=== PATIENT | female | born 1965 | race Two or more races ===

== ENCOUNTER 2017-04-13 12:05 | Emergency (ER) | payer MEDICAID, OTHER ==
[~2017-04-13] VITALS: Ht 160 cm; Wt 62.6 kg
--- NOTE | 2017-04-13 12:20 | NUR ---
PATIENT TO ED DT LOWER ABDOMINAL PAIN, 5/10, SHARP, NON RADIATING SINCE THURSDAY. PATIENT ALSO REPORTED NAUSEA, DENIES VOMITTING, SKIN IS WARM TO TOUCH AND NON DIAPHORETIC. AFEBRILE. VSS. PT ON CHEMO DT OVARIAN CANCER. LAST CHEMO WAS THURSDAY.
[2017-04-13] MEDS ORDERED: IV NS 0.9% 1,000 ML BAG IV ONE (12:30)
[2017-04-13 12:44] LABS: BASOPHILS % (AUTO) 0.5 % (0.0-2.0); EOSINOPHILS % (AUTO) 0.3 % (0.0-6.0); HEMATOCRIT 46 % (33-45); HEMOGLOBIN 15.1 g/dL (11.5-14.8); LYMPHOCYTES # (AUTO) 2.5 /CMM (0.8-4.8); LYMPHOCYTES % (AUTO) 32.2 % (20.0-44.0); MEAN CORPUSCULAR HEMOGLOBIN 27 PG (26.0-33.0); MEAN CORPUSCULAR HGB CONC 33 g/dl (31.0-36.0); MEAN CORPUSCULAR VOLUME 84 fL (82-100); MONOCYTES # (AUTO) 0.9 /CMM (0.1-1.30); MONOCYTES % (AUTO) 11.8 % (2.0-12.0); NEUTROPHILS # (AUTO) 4.3 /CMM (1.8-8.9); NEUTROPHILS % (AUTO) 55.2 % (43.0-81.0); PLATELET COUNT (AUTO) 472 /CMM (150-450); RED BLOOD CELL COUNT(AUTO) 5.52 MIL/uL (4.0-5.2); WHITE BLOOD COUNT (AUTO) 7.7 K/uL (4.3-11.0)
[2017-04-13 12:53] LABS: CALCIUM, SERUM 9.7 mg/dL (8.5-10.1); CARBON DIOXIDE 27 mmol/L (21-32); CHLORIDE 92 mmol/L (98-107); CREATININE 0.8 mg/dL (0.6-1.3); GLUCOSE 184 mg/dL (74-106); POTASSIUM 3.4 mmol/L (3.5-5.1); SODIUM SERUM 130 mmol/L (136-145); UREA NITROGEN, BLOOD 12 mg/dL (7-18)
[2017-04-13 12:54] LABS: INR 0.93 (0.87-1.13); PROTHROMBIN TIME 9.7 SECS (9.5-12.7)
[2017-04-13 12:58] LABS: ALANINE AMINOTRANSFERASE 54 U/L (12-78); ALBUMIN 3.3 g/dL (3.4-5.0); ALKALINE PHOSPHATASE 133 U/L (46-116); ASPARTATE AMINOTRANSFERASE 31 U/L (15-37); BILIRUBIN,DIRECT 0.1 mg/dL (0.0-0.2); BILIRUBIN,TOTAL 0.3 mg/dL (0.2-1.0); TOTAL PROTEIN, SERUM 8.1 g/dL (6.4-8.2)
[2017-04-13 13:00] LABS: TROPONIN I < 0.017 ng/mL (0.00-0.056)
[2017-04-13] MEDS ORDERED: CT SWABBABLE VALVE TRANS SET 1 EA INFUS.SET MC ONE (13:08)
[2017-04-13] MEDS ORDERED: IOHEXOL-300 100 ML VIAL IV ONE (13:08)
[2017-04-13] MEDS ORDERED: IV NS 0.9% 250 ML IV ONE (13:08)
[2017-04-13 13:09] LABS: APPEARANCE,URINE Clear (CLEAR); BILIRUBIN,URINE Negative (NEGATIVE); BLOOD, URINE Trace-lysed Ery/uL (NEGATIVE); COLOR,URINE Yellow (YELLOW); KETONES,URINE Negative (NEGATIVE); LEUKOCYTE ESTERASE ,URINE Negative (NEGATIVE); NITRITE, URINE Negative (NEGATIVE); PROTEIN,URINE 100 mg/dl (NEGATIVE); UGLUCOSE 100 MG/DL mg/dL (NEGATIVE); UROBILINOGEN,URINE 0.2 EU/dL (0.2)
[2017-04-13 13:13] LABS: BACTERIA,URINE None seen /HPF (None Seen); SQUAMOUS EPITHELIAL CELL,UR Few /HPF (None Seen); WBC,URINE 0-2 /HPF (0-3)
--- NOTE | 2017-04-13 13:15 | NUR ---
PATIENT WAS TAKEN TO CT
[2017-04-13] MEDS ORDERED: VANCOMYCIN 1 GM in IV D5W 250 ML IV ONE (13:30)
[2017-04-13] MEDS ORDERED: PIPERACILLIN /TAZOBACTAM 3.375 G in IV D5W 50 ML IV ONE (13:30)
[2017-04-13] MEDS: POTASSIUM CL. PREMIX PERIPHER. 50 ML IV SCH ×2 (14:00→14:44)
[2017-04-13] MEDS ORDERED: POTASSIUM CL. PREMIX PERIPHER. 100 ML ONE (14:12)
--- NOTE | 2017-04-13 14:29 | NUR ---
CALLED DR SANCHEZ,LEFT VOICEMAIL.
[2017-04-13] MEDS ORDERED: DEXA4TAB PO (14:34)
[2017-04-13] MEDS ORDERED: ONDA4TAB5 PO (14:34)
--- NOTE | 2017-04-13 15:25 | NUR ---
DR SANCHEZ CALLED BACK, EXPECTING TRANSFER INFORMATION TO [facility].
--- NOTE | 2017-04-13 16:53 | NUR ---
LALIT FROM [facility] CALLED, BED AT [place] IS STILL PENDING. ONCE SHE GETS A BED SHE WILL GIVE US A CALL. [facility] IS ON WILL CALL, TRIP #[id number]
--- NOTE | 2017-04-13 17:38 | NUR ---
Patient is resting comfortably in bed with eyes closed. Easily aroused. VSS
--- NOTE | 2017-04-13 18:22 | NUR ---
PATIENT IS GOING TO [facility]- [phone] NUMBER [id number] DR[address] GUIDRY TO CALL DR. LEPE- [phone] [facility] [phone]
--- NOTE | 2017-04-13 18:27 | NUR ---
CALLED DR LEPE LEFT VOICEMAIL.
--- NOTE | 2017-04-13 18:29 | NUR ---
REPORT GIVEN TO TING SELF FOR CONTINUITY OF CARE/
--- NOTE | 2017-04-13 19:06 | NUR ---
RECEIVED REPORT FROM TING TITUS FOR [facility]O.
--- NOTE | 2017-04-13 19:50 | NUR ---
[facility] FROM [facility] CALLED BACK, PATIENT WILL BE TRANSPORTED TO [facility]. ROOM [address] [facility] NUMBER TO CALL REPORT . EXPECTING A CALL BACK FROM [facility] WITH TRANSPORT INFORMATION.
[2017-04-13 21:04] VITALS: BP 136/98
--- NOTE | 2017-04-13 21:18 | NUR ---
[facility] WITH ALL PERSONAL BELONGINGS. PT TO BE TRANSFERRED TO [facility] VIA [facility]. PT AWARE OF TRANSFER
--- NOTE | 2017-04-13 21:23 | NUR ---
REPORT GIVEN TO JACQUI CORADO FOR CLEO
== END 2017-04-13 22:40 | disposition short-term general hospital (02) ==
LOC: ER 12:07 → TELE 15:39 → UNDOADMIN 15:39 → ER 22:40
DX: A41.9 Sepsis, unspecified organism (principal); R65.20 Severe sepsis without septic shock; J18.9 Pneumonia, unspecified organism; E87.6 Hypokalemia; R18.0 Malignant ascites; J90 Pleural effusion, not elsewhere classified; Z91.018 Allergy to other foods; Z85.43 Personal history of malignant neoplasm of ovary; Z90.710 Acquired absence of both cervix and uterus
CPT/HCPCS: 36415; 71010; 74160; 80048; 80076; 81001; 83605 ×2; 84484; 85025; 85730; 87040 ×2; 87081; 87086; 93005; 96361; 96365 ×2; 96366; 96368; 99291; A4606; J2543; J3370; J3480; J7030 ×2; J7050; J7060 ×2; Q9967; Z7610; 81000-TC

== ENCOUNTER 2018-10-19 11:44 | Emergency (ER) | payer SELFPAY ==
[~2018-10-19] VITALS: Ht 149.9 cm; Wt 72.6 kg
[~2018-10-19 11:44] MED LIST: DEXA4TAB PO; ONDA4TAB5 PO
--- NOTE | 2018-10-19 11:50 | NUR ---
PT CHERRY RA 87 From [facility] "was getting chemo - allergic reaction felt SOB was given Benadryl/prednisone in facility and 4Mg Zofran en route" PT IS AAOX3 CITIZ[place] SPEAKING ONLY, NOT IN RESPIRATORY DISTRESS, HOOKED TO MONITOR, V/S STABLE, KEPT RESTED AND COMFORTABLE, WILL CONTINUE TO MONITOR.
--- NOTE | 2018-10-19 11:50 | NUR ---
IV LINE ESTABLISHED, LABS DRAWNED AND SENT TO LAB.
--- NOTE | 2018-10-19 11:55 | NUR ---
AMEENA LAW AT BEDSIDE FOR EVAL.
[2018-10-19] MEDS ORDERED: IV NS 0.9% 1,000 ML BAG IV ONE (12:00)
--- NOTE | 2018-10-19 13:23 | NUR ---
IV removed. Catheter intact and site benign. Pressure and 4x4 applied to site. No bleeding noted. Patient discharged to home in stable condition. Written and verbal after care instructions given. Patient verbalizes understanding of instruction.
[2018-10-19 13:24] VITALS: BP 124/75
== END 2018-10-19 13:25 | disposition home or self-care (01) ==
LOC: ER 11:50
DX: T45.1X5A Adverse effect of antineoplastic and immunosuppressive drugs, initial encounter (principal); C56.9 Malignant neoplasm of unspecified ovary; Z91.018 Allergy to other foods; Z79.899 Other long term (current) drug therapy; Y92.89 Other specified places as the place of occurrence of the external cause
CPT/HCPCS: 99283; J7030

== ENCOUNTER 2022-04-23 09:53 | Emergency (ER) | payer OTHER ==
[~2022-04-23] VITALS: Ht 152.4 cm; Wt 61.2 kg
--- NOTE | 2022-04-23 10:05 | NUR ---
SENT HERE BY DR ALVA BECAUSE OF AN ABNORMAL EKG,UNABLE TO TAKE CHEMO THERAPY UNTIL CLEARED BY CARDIO
--- NOTE | 2022-04-23 10:15 | NUR ---
tech at bedside for ekg
[2022-04-23] MEDS ORDERED: IV NS 0.9% 1,000 ML BAG IV ONE (10:30)
--- NOTE | 2022-04-23 11:00 | NUR ---
access portacath aseptically , blood sample obtained sent to lab
--- NOTE | 2022-04-23 11:24 | NUR ---
URINE SAMPLE COLLECTED AND SENT TO LAB
[2022-04-23 11:41] LABS: BASOPHILS % (AUTO) 0.5 % (0.0-2.0); EOSINOPHILS % (AUTO) 0.3 % (0.0-6.0); HEMATOCRIT 33 % (33-45); HEMOGLOBIN 11.1 g/dL (11.5-14.8); LYMPHOCYTES % (AUTO) 24.9 % (20.0-44.0); MEAN CORPUSCULAR HGB CONC 34 g/dl (31.0-36.0); MEAN CORPUSCULAR VOLUME 101 fL (82-100); MONOCYTES # (AUTO) 0.3 K/uL (0.1-1.30); MONOCYTES % (AUTO) 6.7 % (2.0-12.0); NEUTROPHILS # (AUTO) 2.8 K/uL (1.8-8.9); NEUTROPHILS % (AUTO) 67.6 % (43.0-81.0); PLATELET COUNT (AUTO) 267 K/uL (150-450); RED BLOOD CELL COUNT(AUTO) 3.24 MIL/uL (4.0-5.2); WHITE BLOOD COUNT (AUTO) 4.1 K/uL (4.3-11.0)
[2022-04-23 11:48] LABS: CALCIUM, SERUM 8.3 mg/dL (8.5-10.1); CARBON DIOXIDE 26 mmol/L (21-32); CHLORIDE 98 mmol/L (98-107); CREATININE 0.8 mg/dL (0.6-1.3); GLUCOSE 332 mg/dL (74-106); POTASSIUM 3.1 mmol/L (3.5-5.1); SODIUM SERUM 134 mmol/L (136-145); UREA NITROGEN, BLOOD 10 mg/dL (7-18)
[2022-04-23 11:59] LABS: ALANINE AMINOTRANSFERASE 31 U/L (12-78); ALBUMIN 2.8 g/dL (3.4-5.0); ALKALINE PHOSPHATASE 95 U/L (46-116); ASPARTATE AMINOTRANSFERASE 21 U/L (15-37); BILIRUBIN,DIRECT 0.1 mg/dL (0.0-0.2); BILIRUBIN,TOTAL 0.3 mg/dL (0.2-1.0); TOTAL PROTEIN, SERUM 6.7 g/dL (6.4-8.2)
--- NOTE | 2022-04-23 12:15 | NUR ---
ESTABLISHED IV LINE 18G RIGHT AC FOR CT WITH CONTRAST
--- NOTE | 2022-04-23 12:30 | NUR ---
TAKEN TO CT
[2022-04-23] MEDS ORDERED: IOHEXOL-350 100 ML VIAL IV ONE (12:34)
[2022-04-23] MEDS ORDERED: CT SWABBABLE VALVE TRANS SET 1 EA INFUS.SET MC ONE (12:37)
--- NOTE | 2022-04-23 16:15 | NUR ---
fleming needle removed then applied dressing aseptically .
--- NOTE | 2022-04-23 16:16 | NUR ---
IV removed. Catheter intact and site benign. Pressure and 4x4 applied to site. No bleeding noted.
--- NOTE | 2022-04-23 16:26 | NUR ---
Patient discharged to home in stable condition. Written and verbal after care instructions given. Patient verbalizes understanding of instruction.
[2022-04-23 16:43] VITALS: BP 135/88
== END 2022-04-23 16:26 | disposition home or self-care (01) ==
LOC: ER 09:58
DX: R00.2 Palpitations (principal); Z91.018 Allergy to other foods; Z79.899 Other long term (current) drug therapy
CPT/HCPCS: 99285; 96360; 71275; 71045; 93005; 85025; 80048; 80076; 85378; 36415; 84484; 83880; J7030; Q9967

== ENCOUNTER 2024-09-05 10:43 | Inpatient (IN) | payer OTHER ==
[~2024-09-05] VITALS: Ht 152.4 cm; Wt 61.2 kg
[2024-09-05 11:28] VITALS: O2SAT 100
[2024-09-05] MEDS: IV NS 0.9% 500 ML BAG IV ONE (11:41)
[2024-09-05 11:54] LABS: BASOPHILS % (AUTO) 0.5 % (0.0-2.0); EOSINOPHILS # (AUTO) 0.1 K/uL (0.0-0.7); EOSINOPHILS % (AUTO) 1.4 % (0.0-6.0); HEMATOCRIT 32 % (33-45); HEMOGLOBIN 10.4 g/dL (11.5-14.8); LYMPHOCYTES # (AUTO) 1.5 K/uL (0.8-4.8); LYMPHOCYTES % (AUTO) 37.4 % (20.0-44.0); MEAN CORPUSCULAR HEMOGLOBIN 32 PG (26.0-33.0); MEAN CORPUSCULAR HGB CONC 33 g/dl (31.0-36.0); MEAN CORPUSCULAR VOLUME 97 fL (82-100); MONOCYTES # (AUTO) 0.4 K/uL (0.1-1.30); NEUTROPHILS # (AUTO) 2.1 K/uL (1.8-8.9); NEUTROPHILS % (AUTO) 50.7 % (43.0-81.0); PLATELET COUNT (AUTO) 228 K/uL (150-450); RED BLOOD CELL COUNT(AUTO) 3.31 MIL/uL (4.0-5.2); RED CELL DISTRIBUTION WIDTH 25.1 % (11.5-15.0); WHITE BLOOD COUNT (AUTO) 4.1 K/uL (4.3-11.0)
[2024-09-05] MEDS: CEFEPIME 1 GM in IV D5W 50 ML IV ONE (12:02)
[2024-09-05 12:04] LABS: CALCIUM, SERUM 9.1 mg/dL (8.5-10.1); CARBON DIOXIDE 25 mmol/L (21-32); CHLORIDE 99 mmol/L (98-107); CREATININE 0.6 mg/dL (0.6-1.3); GLUCOSE 202 mg/dL (74-106); POTASSIUM 3.8 mmol/L (3.5-5.1); SODIUM SERUM 134 mmol/L (136-145); UREA NITROGEN, BLOOD 9 mg/dL (7-18)
[2024-09-05 12:14] LABS: INR 1.05 (0.91-1.10); PARTIAL THROMBOPLASTIN TIME 29.2 SEC (24.3-34.3); PROTHROMBIN TIME 11.1 SECS (9.2-11.1)
[2024-09-05 12:15] VITALS: O2SAT 95
[2024-09-05 12:21] LABS: ALANINE AMINOTRANSFERASE 20 U/L (12-78); ALBUMIN 3.1 g/dL (3.4-5.0); ALKALINE PHOSPHATASE 98 U/L (46-116); ASPARTATE AMINOTRANSFERASE 22 U/L (15-37); BILIRUBIN,DIRECT 0.2 mg/dL (0.0-0.2); BILIRUBIN,TOTAL 0.6 mg/dL (0.2-1.0); NT-PRO BNP 276 pg/mL (0-125); TOTAL PROTEIN, SERUM 7.4 g/dL (6.4-8.2)
[2024-09-05 12:24] LABS: LACTIC ACID 2.7 mmol/L (0.4-2.0)
[2024-09-05] MEDS ORDERED: GLIM1TAB18 PO (12:40)
[2024-09-05] MEDS ORDERED: RIVA10TA PO (12:40)
[2024-09-05] MEDS ORDERED: METF-442 PO (12:40)
[2024-09-05] MEDS ORDERED: FERR-68 PO (12:40)
[2024-09-05] MEDS ORDERED: CHOL200059 PO (12:40)
[2024-09-05] MEDS ORDERED: METO25TA4 PO (12:40)
[2024-09-05] MEDS ORDERED: EXEM25TA5 PO (12:40)
[2024-09-05 12:47] LABS: ABG BASE EXCESS -1.8 mmol/L (-2.0-3.0); ABG OXYGEN SATURATION 94.9 % (94.0-98.0); ABG PCO2 33.6 mmHg (32.0-45.0); ABG PH 7.433 (7.350-7.450); ABG PO2 83.2 mmHg (83.0-108.0); COHb 0.3 % (0.5-1.5); MetHb 0.2 % (0.0-1.5); O2Hb 94.4 % (94.0-97.0); SITE, ABG RIGHT RADIAL
[2024-09-05] MEDS ORDERED: MORPHINE SULFATE INJ 2 MG/ML DISP.SYRIN IV PRN (13:00)
[2024-09-05] MEDS ORDERED: Z GUARD REMEDY 4 OZ OINT TP PRN (13:00)
[2024-09-05] MEDS ORDERED: MAG HYDROX/AL HYDROX/SIMETH 30 ML UDC PO PRN (13:00)
[2024-09-05] MEDS ORDERED: MAGNESIUM HYDROXIDE 30 ML UDC PO PRN (13:00)
[2024-09-05] MEDS ORDERED: ONDANSETRON HCL/PF 4 MG/2 ML VIAL IVP PRN (13:00)
[2024-09-05 16:00] VITALS: BP 136/79; TEMP 98.2; O2SAT 100
[2024-09-05 20:00] VITALS: BP 127/87; TEMP 98.2; O2SAT 97
[2024-09-06] VITALS: BP 119/80; TEMP 98.2; O2SAT 95
[2024-09-06 04:00] VITALS: BP 119/80; TEMP 98.4; O2SAT 99
[2024-09-06 07:17] LABS: CALCIUM, SERUM 8.7 mg/dL (8.5-10.1); CREATININE 0.5 mg/dL (0.6-1.3); MAGNESIUM 1.4 mg/dL (1.8-2.4); PHOSPHORUS 2.8 mg/dL (2.5-4.9); POTASSIUM 3.3 mmol/L (3.5-5.1)
[2024-09-06 07:23] LABS: BASOPHILS % (AUTO) 0.4 % (0.0-2.0); EOSINOPHILS # (AUTO) 0.1 K/uL (0.0-0.7); EOSINOPHILS % (AUTO) 2.5 % (0.0-6.0); HEMATOCRIT 30 % (33-45); LYMPHOCYTES # (AUTO) 1.6 K/uL (0.8-4.8); MEAN CORPUSCULAR HEMOGLOBIN 32 PG (26.0-33.0); MEAN CORPUSCULAR HGB CONC 33 g/dl (31.0-36.0); MEAN CORPUSCULAR VOLUME 96 fL (82-100); MONOCYTES # (AUTO) 0.4 K/uL (0.1-1.30); NEUTROPHILS # (AUTO) 1.6 K/uL (1.8-8.9); NEUTROPHILS % (AUTO) 43.1 % (43.0-81.0); PLATELET COUNT (AUTO) 259 K/uL (150-450); RED BLOOD CELL COUNT(AUTO) 3.15 MIL/uL (4.0-5.2); RED CELL DISTRIBUTION WIDTH 24.2 % (11.5-15.0); WHITE BLOOD COUNT (AUTO) 3.7 K/uL (4.3-11.0)
[2024-09-06 08:00] VITALS: BP 119/80; TEMP 98.1; O2SAT 99
[2024-09-06] MEDS: MAGNESIUM OXIDE 400 MG TABLET PO ONE (09:46)
[2024-09-06] MEDS: POTASSIUM CHLORIDE 20 MEQ TAB.PRT.SR PO SCH (09:46)
[2024-09-06] MEDS ORDERED: DEXTROSE 50%-WATER 50 ML DISP.SYRIN IV PRN (10:30)
[2024-09-06] MEDS: TBO-FILGRASTIM 300 MCG/0.5 ML SYRINGE SQ SCH (11:12)
[2024-09-06] MEDS: METOPROLOL SUCCINATE 25 MG TAB.SR.24H PO SCH (11:14)
[2024-09-06 12:00] VITALS: BP 132/90; TEMP 97.9; O2SAT 99
[2024-09-06] MEDS ORDERED: IOHEXOL-300 100 ML VIAL IV ONE (12:25)
[2024-09-06] MEDS ORDERED: IV NS 0.9% 250 ML IV ONE (12:25)
[2024-09-06] MEDS: BLOOD SUGAR DIAGNOSTIC 1 EACH STRIP VI SCH (12:55)
[2024-09-06] MEDS: INSULIN REGULAR, HUMAN 100 UNIT/ML 3 ML VIAL SQ PRN (12:56)
[2024-09-06] MEDS: ACETAMINOPHEN 325 MG TABLET PO PRN (15:58)
[2024-09-06 16:08] VITALS: BP 107/77; TEMP 99.1; O2SAT 99
[2024-09-06 16:39] LABS: PROTEIN, BODY FLUID 4.1 G/DL
[2024-09-06 18:02] LABS: THYROID STIMULATING HORMONE 1.74 uIU/mL (0.358-3.74)
[2024-09-06 19:05] LABS: APPEARANCE,SPUN,BODY FLUID CLEAR (CLEAR); TOTAL VOLUME,BODY FLUID 1650 mL; WBC, BODY FLUID 266 /cu. mm. (0-200)
[2024-09-06 19:10] LABS: MONOCYTES,BODY FLUID 2 %
[2024-09-06 20:00] VITALS: BP 112/78; TEMP 98.2; O2SAT 96
[2024-09-06] MEDS: *INSULIN REGULAR(HUMULIN R)HUM 100 UNIT/ML VIAL SQ PRN (21:47)
[2024-09-06 22:05] LABS: OCCULT BLOOD STOOL NEGATIVE (NEGATIVE)
[2024-09-07] VITALS: BP 112/78; TEMP 98.2; O2SAT 96
[2024-09-07 00:37] LABS: RHEUMATOID FACTOR SCREEN NEGATIVE (NEGATIVE)
[2024-09-07 04:00] VITALS: BP 102/74; TEMP 98.1; O2SAT 94
[2024-09-07 07:35] LABS: BASOPHILS % (AUTO) 0.2 % (0.0-2.0); EOSINOPHILS # (AUTO) 0.1 K/uL (0.0-0.7); EOSINOPHILS % (AUTO) 0.9 % (0.0-6.0); HEMATOCRIT 32 % (33-45); HEMOGLOBIN 10.7 g/dL (11.5-14.8); LYMPHOCYTES # (AUTO) 2.8 K/uL (0.8-4.8); LYMPHOCYTES % (AUTO) 27.1 % (20.0-44.0); MEAN CORPUSCULAR HEMOGLOBIN 32 PG (26.0-33.0); MEAN CORPUSCULAR HGB CONC 33 g/dl (31.0-36.0); MEAN CORPUSCULAR VOLUME 97 fL (82-100); MONOCYTES # (AUTO) 0.6 K/uL (0.1-1.30); MONOCYTES % (AUTO) 6.2 % (2.0-12.0); NEUTROPHILS # (AUTO) 6.8 K/uL (1.8-8.9); NEUTROPHILS % (AUTO) 65.6 % (43.0-81.0); PLATELET COUNT (AUTO) 320 K/uL (150-450); RED BLOOD CELL COUNT(AUTO) 3.35 MIL/uL (4.0-5.2); RED CELL DISTRIBUTION WIDTH 24.3 % (11.5-15.0); WHITE BLOOD COUNT (AUTO) 10.4 K/uL (4.3-11.0)
[2024-09-07 07:53] LABS: INR 1.07 (0.91-1.10); PARTIAL THROMBOPLASTIN TIME 28.1 SEC (24.3-34.3); PROTHROMBIN TIME 11.3 SECS (9.2-11.1)
[2024-09-07 07:56] LABS: CALCIUM, SERUM 8.3 mg/dL (8.5-10.1); CREATININE 0.5 mg/dL (0.6-1.3); POTASSIUM 3.3 mmol/L (3.5-5.1)
[2024-09-07 07:57] LABS: MAGNESIUM 1.5 mg/dL (1.8-2.4)
[2024-09-07 08:00] VITALS: BP 92/66; TEMP 98.2; O2SAT 94
[2024-09-07 08:24] LABS: D-DIMER 5.01 mg/L(FEU (0.17-0.50)
[2024-09-07] MEDS: EXEMESTANE 25 MG PO SCH (08:30)
[2024-09-07] MEDS: FERROUS SULFATE (325 MG) 325 MG/TAB TABLET PO SCH (08:30)
[2024-09-07 12:00] VITALS: BP 108/74; TEMP 98.1; O2SAT 94
[2024-09-07] MEDS: POTASSIUM CHLORIDE 20 MEQ TAB.PRT.SR PO ONE (14:20)
[2024-09-07 16:00] VITALS: BP 108/69; TEMP 97.9; O2SAT 96
[2024-09-07 16:00] LABS: HIV-1 p24 ANTIGEN NON REACTIVE (NONREACTIVE); HIV-1/2 ANTIBODY NON REACTIVE (NONREACTIVE)
[2024-09-07] MEDS: K PHOS NEUTRAL 250 MG TABLET PO ONE (16:50)
[2024-09-07 20:00] VITALS: BP 104/62; TEMP 98.4; O2SAT 98
[2024-09-07] MEDS: MAGNESIUM OXIDE 400 MG TABLET PO ONE (20:57)
[2024-09-08] VITALS: BP 104/62; TEMP 98.4; O2SAT 98
[2024-09-08 04:10] VITALS: BP 112/60; TEMP 98; O2SAT 98
[2024-09-08 06:11] LABS: CANCER AG, 125 52.1 U/mL (0.0-38.1); CARCINOEMBRYONIC ANTIGEN (CEA) 2.3 ng/mL (0.0-4.7)
[2024-09-08 07:07] LABS: IMMUNOGLOBULIN A, SERUM 175 mg/dL (87-352); IMMUNOGLOBULIN G, SERUM 641 mg/dL (586-1602); IMMUNOGLOBULIN M, SERUM 37 mg/dL (26-217)
[2024-09-08 07:28] LABS: BASOPHILS % (AUTO) 0.3 % (0.0-2.0); EOSINOPHILS # (AUTO) 0.1 K/uL (0.0-0.7); EOSINOPHILS % (AUTO) 0.7 % (0.0-6.0); HEMATOCRIT 31 % (33-45); HEMOGLOBIN 9.9 g/dL (11.5-14.8); LYMPHOCYTES % (AUTO) 19.5 % (20.0-44.0); MEAN CORPUSCULAR HEMOGLOBIN 31 PG (26.0-33.0); MEAN CORPUSCULAR HGB CONC 32 g/dl (31.0-36.0); MEAN CORPUSCULAR VOLUME 97 fL (82-100); MONOCYTES # (AUTO) 1.1 K/uL (0.1-1.30); MONOCYTES % (AUTO) 7.2 % (2.0-12.0); NEUTROPHILS # (AUTO) 11.2 K/uL (1.8-8.9); NEUTROPHILS % (AUTO) 72.3 % (43.0-81.0); PLATELET COUNT (AUTO) 332 K/uL (150-450); RED BLOOD CELL COUNT(AUTO) 3.17 MIL/uL (4.0-5.2); RED CELL DISTRIBUTION WIDTH 23.7 % (11.5-15.0); WHITE BLOOD COUNT (AUTO) 15.5 K/uL (4.3-11.0)
[2024-09-08 08:10] LABS: FOLIC ACID 14.8 ng/mL (>3.0); HEPATITIS B CORE AB, IgM Negative (Negative); HEPATITIS B CORE AB, TOTAL Negative (Negative); HEPATITIS B SURFACE AB (QUAL) Reactive (.)
[2024-09-08 08:11] LABS: CALCIUM, SERUM 8.3 mg/dL (8.5-10.1); CREATININE 0.6 mg/dL (0.6-1.3); MAGNESIUM 1.7 mg/dL (1.8-2.4); PHOSPHORUS 2.3 mg/dL (2.5-4.9); POTASSIUM 4.2 mmol/L (3.5-5.1)
[2024-09-08] MEDS ORDERED: Magnesium 1GM/D5W 100ML PREMIX PIGGYBACK IV ONE (08:30)
[2024-09-08 10:25] VITALS: BP 102/79
[2024-09-08] MEDS: Magnesium 1GM/D5W 100ML PREMIX 100 ML IV SCH (10:59)
[2024-09-08] MEDS ORDERED: TBO-FILGRASTIM 300 MCG/0.5 ML SYRINGE SQ SCH (11:00)
[2024-09-08 13:10] LABS: FREE KAPPA LT CHAINS SERUM 15.8 mg/L (3.3-19.4); FREE LAMBDA LT CHAIN SERUM 13.4 mg/L (5.7-26.3); KAPPA/LAMBDA RATIO SERUM 1.18 (0.26-1.65)
[2024-09-08 13:58] LABS: BAND % (MANUAL) 1 % (0.0-5.0); LYMPHOCYTES % (MANUAL) 30 % (16-48); MONOCYTES % (MANUAL) 6 % (0-11.0); NEUTROPHILS % (MANUAL) 63 (42-76); PLATELET ESTIMATE ADEQUATE
[2024-09-08 16:10] LABS: *ANA ANTI-CENTROMERE B AB <0.2 AI (0.0-0.9); *ANA ANTI-DNA(DS) AB, QN <1 IU/mL (0-9); *ANA ANTI-JO-1 <0.2 AI (0.0-0.9); *ANA ANTICHROMATIN ANTIBODY <0.2 AI (0.0-0.9); *ANA RNP ANTIBODIES 0.3 AI (0.0-0.9); *ANA SJOGREN'S ANTI-SS-A <0.2 AI (0.0-0.9); *ANA SJOGREN'S ANTI-SS-B <0.2 AI (0.0-0.9); *ANAANTI-SCLERODERMA-70 AB <0.2 AI (0.0-0.9); *ANASMITH AB <0.2 AI (0.0-0.9)
== END 2024-09-08 11:25 | disposition home or self-care (01) | DRG 754 ==
LOC: ER 10:46 → TELE-TD 12:25 → TELE1 09-06 10:12 → MEDSG1 09-07 16:44
PROVIDERS: ADMIT Internal Medicine; ATTEND Internal Medicine
PROC: 0W9B3ZX Drainage of Left Pleural Cavity, Percutaneous Approach, Diagnostic (ICD-10-PCS; principal; 2024-09-06)
DX: C56.9 Malignant neoplasm of unspecified ovary (principal); J18.9 Pneumonia, unspecified organism; J96.01 Acute respiratory failure with hypoxia; J91.0 Malignant pleural effusion; C79.51 Secondary malignant neoplasm of bone; J98.11 Atelectasis; D61.818 Other pancytopenia; Z20.822 Contact with and (suspected) exposure to COVID-19; Z90.710 Acquired absence of both cervix and uterus; Z90.49 Acquired absence of other specified parts of digestive tract; Z86.711 Personal history of pulmonary embolism; I10 Essential (primary) hypertension; Z91.018 Allergy to other foods; Z79.899 Other long term (current) drug therapy; D50.9 Iron deficiency anemia, unspecified; E83.42 Hypomagnesemia; E87.6 Hypokalemia; Z79.01 Long term (current) use of anticoagulants; Z79.84 Long term (current) use of oral hypoglycemic drugs; Z92.21 Personal history of antineoplastic chemotherapy; D72.819 Decreased white blood cell count, unspecified
CPT/HCPCS: 36415; 36600; 71045-TC; 71260-TC; 78306-TC; 80048-TC; 80076-TC; 82272-TC; 82378; 82607-TC; 82728-TC; 82784; 82803-TC; 82962-TC; 83540-TC; 83605-TC; 83735-TC; 83880; 84100-TC; 84155; 84165; 84443-TC; 84484-TC; 85025-TC; 85396; 85730-TC; 86225; 86235; 86304; 86334; 86431-TC; 86704; 86705; 86706; 86803; 87040-TC; 87086-TC; 87102-TC; 87186-TC; 87340; 87806; 89051-TC; 94799-TC; 97110-TC; 97112-TC; 97116-TC; 97530-TC; 97535-TC; A4223; A9503; G0378; J0692; J1442; J1815; J3475; J7040; J7050; J7060; Q9967

== ENCOUNTER 2024-09-14 09:52 | Inpatient (IN) | payer OTHER ==
[~2024-09-14] VITALS: Ht 152.4 cm; Wt 53.5 kg
[~2024-09-14 09:52] MED LIST changes: +CHOL200059 PO; -DEXA4TAB PO; +EXEM25TA5 PO; +FERR-68 PO; +GLIM1TAB18 PO; +METF-442 PO; +METO25TA4 PO; -ONDA4TAB5 PO; +RIVA10TA PO
[2024-09-14 10:37] LABS: BASOPHILS % (AUTO) 0.1 % (0.0-2.0); HEMATOCRIT 33 % (33-45); HEMOGLOBIN 10.3 g/dL (11.5-14.8); LYMPHOCYTES # (AUTO) 1.2 K/uL (0.8-4.8); LYMPHOCYTES % (AUTO) 2.7 % (20.0-44.0); MEAN CORPUSCULAR HEMOGLOBIN 31 PG (26.0-33.0); MEAN CORPUSCULAR HGB CONC 31 g/dl (31.0-36.0); MEAN CORPUSCULAR VOLUME 101 fL (82-100); MONOCYTES # (AUTO) 0.7 K/uL (0.1-1.30); MONOCYTES % (AUTO) 1.6 % (2.0-12.0); NEUTROPHILS # (AUTO) 41.3 K/uL (1.8-8.9); NEUTROPHILS % (AUTO) 95.6 % (43.0-81.0); PLATELET COUNT (AUTO) 388 K/uL (150-450); RED CELL DISTRIBUTION WIDTH 24.1 % (11.5-15.0)
[2024-09-14 10:56] LABS: CALCIUM, SERUM 9.1 mg/dL (8.5-10.1); CARBON DIOXIDE 26 mmol/L (21-32); CHLORIDE 101 mmol/L (98-107); CREATININE 0.5 mg/dL (0.6-1.3); GLUCOSE 213 mg/dL (74-106); NT-PRO BNP 309 pg/mL (0-125); POTASSIUM 3.7 mmol/L (3.5-5.1); SODIUM SERUM 134 mmol/L (136-145); UREA NITROGEN, BLOOD 10 mg/dL (7-18)
[2024-09-14 11:03] LABS: PARTIAL THROMBOPLASTIN TIME 26.6 SEC (24.3-34.3); PROTHROMBIN TIME 10.3 SECS (9.2-11.1)
[2024-09-14 11:19] LABS: WHITE BLOOD COUNT (AUTO) 43.2 K/uL (4.3-11.0)
[2024-09-14 11:21] LABS: ABG BASE EXCESS 1.1 mmol/L (-2.0-3.0); ABG OXYGEN SATURATION 98.2 % (94.0-98.0); ABG PCO2 38.6 mmHg (32.0-45.0); ABG PH 7.434 (7.350-7.450); ABG PO2 117.1 mmHg (83.0-108.0); ABG TOTAL HEMOGLOBIN 10.8 G/dL (12.0-16.0); COHb 0.3 % (0.5-1.5); MetHb 0.4 % (0.0-1.5); O2Hb 97.5 % (94.0-97.0); SITE, ABG LEFT RADIAL
[2024-09-14] MEDS: CEFEPIME 1 GM in IV D5W 50 ML IV ONE (12:15)
[2024-09-14] MEDS: VANCOMYCIN 1 GM in IV D5W 250 ML IV ONE (12:30)
[2024-09-14] MEDS ORDERED: MAGNESIUM HYDROXIDE 30 ML UDC PO PRN (14:00)
[2024-09-14] MEDS ORDERED: ONDANSETRON HCL/PF 4 MG/2 ML VIAL IVP PRN (14:00)
[2024-09-14] MEDS ORDERED: Z GUARD REMEDY 4 OZ OINT TP PRN (14:00)
[2024-09-14] MEDS ORDERED: MAG HYDROX/AL HYDROX/SIMETH 30 ML UDC PO PRN (14:00)
[2024-09-14] MEDS ORDERED: CEFEPIME 1 GM in IV D5W 50 ML IV SCH (14:30)
[2024-09-14 14:37] LABS: ANISOCYTOSIS 2+; LYMPHOCYTES % (MANUAL) 4 % (16-48); MONOCYTES % (MANUAL) 2 % (0-11.0); NEUTROPHILS % (MANUAL) 94 (42-76); PLATELET ESTIMATE ADEQUATE
[2024-09-14] MEDS: ENOXAPARIN SODIUM 40 MG/0.4 ML DISP.SYRIN SQ SCH (14:44)
[2024-09-14 16:00] VITALS: BP 125/74; TEMP 97.5; O2SAT 100
[2024-09-14] MEDS ORDERED: DEXTROSE 50%-WATER 50 ML DISP.SYRIN IV PRN (16:30)
[2024-09-14] MEDS: METFORMIN 500 MG TABLET PO SCH (17:04)
[2024-09-14] MEDS: METOPROLOL SUCCINATE 25 MG TAB.SR.24H PO SCH (17:05)
[2024-09-14] MEDS: BLOOD SUGAR DIAGNOSTIC 1 EACH STRIP IN SCH (17:24)
[2024-09-14] MEDS: INSULIN REGULAR, HUMAN 100 UNIT/ML 3 ML VIAL SQ PRN (17:25)
[2024-09-14] MEDS ORDERED: BLOOD SUGAR DIAGNOSTIC 1 EACH STRIP IN SCH (17:30)
[2024-09-14 19:31] LABS: ALBUMIN 2.5 g/dL (3.4-5.0); BILIRUBIN,DIRECT 0.1 mg/dL (0.0-0.2); BILIRUBIN,TOTAL 0.3 mg/dL (0.2-1.0); TOTAL PROTEIN, SERUM 6.9 g/dL (6.4-8.2)
[2024-09-14 20:00] VITALS: BP 118/73; TEMP 97.2; O2SAT 100
[2024-09-14] MEDS: VANCOMYCIN 1 GM in IV D5W 250ml IV SCH (20:37)
[2024-09-14] MEDS: CEFEPIME 2 GM in IV D5W 100 ML IV SCH (23:19)
[2024-09-15] VITALS: BP 115/76; TEMP 97.9; O2SAT 97
[2024-09-15 04:00] VITALS: BP 111/83; TEMP 97.3; O2SAT 97
[2024-09-15 07:03] LABS: BASOPHILS % (AUTO) 0.1 % (0.0-2.0); EOSINOPHILS % (AUTO) 0.1 % (0.0-6.0); HEMATOCRIT 30 % (33-45); HEMOGLOBIN 9.3 g/dL (11.5-14.8); LYMPHOCYTES # (AUTO) 1.7 K/uL (0.8-4.8); LYMPHOCYTES % (AUTO) 7.4 % (20.0-44.0); MEAN CORPUSCULAR HEMOGLOBIN 31 PG (26.0-33.0); MEAN CORPUSCULAR HGB CONC 31 g/dl (31.0-36.0); MEAN CORPUSCULAR VOLUME 99 fL (82-100); MONOCYTES % (AUTO) 4.2 % (2.0-12.0); NEUTROPHILS # (AUTO) 20.3 K/uL (1.8-8.9); NEUTROPHILS % (AUTO) 88.2 % (43.0-81.0); PLATELET COUNT (AUTO) 393 K/uL (150-450); RED BLOOD CELL COUNT(AUTO) 3.04 MIL/uL (4.0-5.2); RED CELL DISTRIBUTION WIDTH 23.9 % (11.5-15.0)
[2024-09-15 07:36] LABS: CREATININE 0.5 mg/dL (0.6-1.3); MAGNESIUM 1.2 mg/dL (1.8-2.4); POTASSIUM 3.7 mmol/L (3.5-5.1)
[2024-09-15 08:00] VITALS: BP 115/77; TEMP 97.7; O2SAT 96
[2024-09-15] MEDS: CHOLECALCIFEROL 1,000 UNIT TABLET (VIT D3) PO SCH (08:25)
[2024-09-15] MEDS: FERROUS SULFATE (325 MG) 325 MG/TAB TABLET PO SCH (08:25)
[2024-09-15] MEDS ORDERED: EXEMESTANE 25 MG PO SCH (09:00)
[2024-09-15] MEDS: MAGNESIUM OXIDE 400 MG TABLET PO ONE (11:22)
[2024-09-15 16:00] VITALS: BP 114/72; TEMP 97.9; O2SAT 94
[2024-09-15 16:59] LABS: INR 0.97 (0.91-1.10); PARTIAL THROMBOPLASTIN TIME 25.3 SEC (24.3-34.3)
[2024-09-15 18:14] LABS: D-DIMER 3.58 mg/L(FEU (0.17-0.50)
[2024-09-15 20:00] VITALS: BP 108/75; TEMP 97.5; O2SAT 97
[2024-09-15] MEDS: VANCOMYCIN 750 MG in IV D5W 250 ML IV SCH (22:01)
[2024-09-16 04:00] VITALS: BP 92/73; TEMP 97.5
[2024-09-16 07:51] LABS: BASOPHILS % (AUTO) 0.3 % (0.0-2.0); EOSINOPHILS # (AUTO) 0.1 K/uL (0.0-0.7); EOSINOPHILS % (AUTO) 0.7 % (0.0-6.0); HEMATOCRIT 32 % (33-45); HEMOGLOBIN 10.1 g/dL (11.5-14.8); LYMPHOCYTES # (AUTO) 1.8 K/uL (0.8-4.8); LYMPHOCYTES % (AUTO) 17.3 % (20.0-44.0); MEAN CORPUSCULAR HEMOGLOBIN 32 PG (26.0-33.0); MEAN CORPUSCULAR HGB CONC 32 g/dl (31.0-36.0); MEAN CORPUSCULAR VOLUME 101 fL (82-100); MONOCYTES # (AUTO) 0.8 K/uL (0.1-1.30); MONOCYTES % (AUTO) 7.3 % (2.0-12.0); NEUTROPHILS % (AUTO) 74.4 % (43.0-81.0); PLATELET COUNT (AUTO) 372 K/uL (150-450); RED BLOOD CELL COUNT(AUTO) 3.11 MIL/uL (4.0-5.2); RED CELL DISTRIBUTION WIDTH 23.7 % (11.5-15.0); WHITE BLOOD COUNT (AUTO) 10.7 K/uL (4.3-11.0)
[2024-09-16 08:00] VITALS: BP 131/78; TEMP 98; O2SAT 96
[2024-09-16 08:12] LABS: ALBUMIN 2.5 g/dL (3.4-5.0); CALCIUM, SERUM 9.1 mg/dL (8.5-10.1); CREATININE 0.6 mg/dL (0.6-1.3); MAGNESIUM 1.4 mg/dL (1.8-2.4); PHOSPHORUS 2.6 mg/dL (2.5-4.9); POTASSIUM 3.7 mmol/L (3.5-5.1)
[2024-09-16 08:14] LABS: APPEARANCE,URINE CLEAR (CLEAR); BILIRUBIN,URINE NEGATIVE (NEGATIVE); BLOOD, URINE NEGATIVE Ery/uL (NEGATIVE); COLOR,URINE YELLOW (YELLOW); KETONES,URINE NEGATIVE (NEGATIVE); LEUKOCYTE ESTERASE ,URINE NEGATIVE (NEGATIVE); NITRITE, URINE NEGATIVE (NEGATIVE); PROTEIN,URINE NEGATIVE (NEGATIVE); UGLUCOSE NEGATIVE (NEGATIVE); UROBILINOGEN,URINE 0.2 EU/dL (0.2)
[2024-09-16] MEDS: MAGNESIUM OXIDE 400 MG TABLET PO ONE (10:31)
[2024-09-16] MEDS ORDERED: ALBUTEROL FS 2.5 MG/0.5 ML VIAL.NEB NEB PRN (14:30)
[2024-09-16 16:00] VITALS: BP 120/73; TEMP 97.5
[2024-09-16 20:00] VITALS: BP 105/86; TEMP 97.7; O2SAT 97
[2024-09-16 23:54] LABS: PROTEIN, BODY FLUID 3.8 G/DL
[2024-09-17 04:00] VITALS: BP 95/79; TEMP 98.1; O2SAT 100
[2024-09-17 05:09] LABS: APPEARANCE,SPUN,BODY FLUID CLEAR (CLEAR); TOTAL VOLUME,BODY FLUID 1300 mL; WBC, BODY FLUID 198 /cu. mm. (0-200)
[2024-09-17 05:30] LABS: MONOCYTES,BODY FLUID 4 %
[2024-09-17 09:12] LABS: BASOPHILS % (AUTO) 0.3 % (0.0-2.0); EOSINOPHILS % (AUTO) 0.7 % (0.0-6.0); HEMATOCRIT 32 % (33-45); HEMOGLOBIN 10.2 g/dL (11.5-14.8); LYMPHOCYTES # (AUTO) 1.6 K/uL (0.8-4.8); MEAN CORPUSCULAR HEMOGLOBIN 31 PG (26.0-33.0); MEAN CORPUSCULAR HGB CONC 32 g/dl (31.0-36.0); MEAN CORPUSCULAR VOLUME 99 fL (82-100); MONOCYTES # (AUTO) 0.5 K/uL (0.1-1.30); MONOCYTES % (AUTO) 6.7 % (2.0-12.0); NEUTROPHILS # (AUTO) 4.8 K/uL (1.8-8.9); NEUTROPHILS % (AUTO) 69.3 % (43.0-81.0); PLATELET COUNT (AUTO) 352 K/uL (150-450); RED BLOOD CELL COUNT(AUTO) 3.28 MIL/uL (4.0-5.2); RED CELL DISTRIBUTION WIDTH 22.6 % (11.5-15.0); WHITE BLOOD COUNT (AUTO) 6.9 K/uL (4.3-11.0)
[2024-09-17] MEDS: HEPARIN SODIUM,PORCINE/PF 50 UNIT/5 ML DISP.SYRIN IV ONE (10:00)
[2024-09-17 10:28] LABS: CALCIUM, SERUM 8.8 mg/dL (8.5-10.1); CREATININE 0.5 mg/dL (0.6-1.3); MAGNESIUM 1.5 mg/dL (1.8-2.4); PHOSPHORUS 2.5 mg/dL (2.5-4.9); POTASSIUM 3.5 mmol/L (3.5-5.1)
[2024-09-17] MEDS: VANCOMYCIN 1 GM in IV D5W 250ml IV SCH (17:42)
[2024-09-17 20:00] VITALS: BP 102/63; TEMP 98.4; O2SAT 100
[2024-09-18 04:00] VITALS: BP 106/73; TEMP 97.7; O2SAT 99
[2024-09-18 05:00] VITALS: BP 109/77; TEMP 97.4; O2SAT 99
[2024-09-18 08:46] LABS: CALCIUM, SERUM 8.5 mg/dL (8.5-10.1); CREATININE 0.5 mg/dL (0.6-1.3); MAGNESIUM 1.3 mg/dL (1.8-2.4); PHOSPHORUS 2.8 mg/dL (2.5-4.9); POTASSIUM 3.9 mmol/L (3.5-5.1)
[2024-09-18 09:18] LABS: BASOPHILS % (AUTO) 0.5 % (0.0-2.0); EOSINOPHILS % (AUTO) 0.8 % (0.0-6.0); HEMATOCRIT 31 % (33-45); LYMPHOCYTES # (AUTO) 1.3 K/uL (0.8-4.8); LYMPHOCYTES % (AUTO) 22.2 % (20.0-44.0); MEAN CORPUSCULAR HEMOGLOBIN 32 PG (26.0-33.0); MEAN CORPUSCULAR HGB CONC 32 g/dl (31.0-36.0); MEAN CORPUSCULAR VOLUME 99 fL (82-100); MONOCYTES # (AUTO) 0.4 K/uL (0.1-1.30); MONOCYTES % (AUTO) 6.2 % (2.0-12.0); NEUTROPHILS # (AUTO) 4.1 K/uL (1.8-8.9); NEUTROPHILS % (AUTO) 70.3 % (43.0-81.0); PLATELET COUNT (AUTO) 341 K/uL (150-450); RED BLOOD CELL COUNT(AUTO) 3.15 MIL/uL (4.0-5.2); RED CELL DISTRIBUTION WIDTH 21.9 % (11.5-15.0); WHITE BLOOD COUNT (AUTO) 5.9 K/uL (4.3-11.0)
[2024-09-18] MEDS: MAGNESIUM OXIDE 400 MG TABLET PO ONE (10:22)
[2024-09-18 16:00] VITALS: BP 119/79; TEMP 98; O2SAT 99
[2024-09-18] MEDS: VANCOMYCIN 750 MG in IV D5W 250 ML IV SCH (20:59)
[2024-09-19] VITALS: BP 104/51; TEMP 98.2; O2SAT 99
[2024-09-19 08:00] VITALS: BP 100/60; TEMP 98.2; O2SAT 99
[2024-09-19 08:32] LABS: CALCIUM, SERUM 8.9 mg/dL (8.5-10.1); CREATININE 0.4 mg/dL (0.6-1.3); MAGNESIUM 1.3 mg/dL (1.8-2.4); PHOSPHORUS 2.6 mg/dL (2.5-4.9); POTASSIUM 3.6 mmol/L (3.5-5.1)
[2024-09-19 08:42] LABS: BASOPHILS % (AUTO) 0.6 % (0.0-2.0); EOSINOPHILS # (AUTO) 0.1 K/uL (0.0-0.7); EOSINOPHILS % (AUTO) 1.3 % (0.0-6.0); HEMATOCRIT 31 % (33-45); HEMOGLOBIN 9.9 g/dL (11.5-14.8); LYMPHOCYTES # (AUTO) 1.4 K/uL (0.8-4.8); LYMPHOCYTES % (AUTO) 25.3 % (20.0-44.0); MEAN CORPUSCULAR HEMOGLOBIN 32 PG (26.0-33.0); MEAN CORPUSCULAR HGB CONC 33 g/dl (31.0-36.0); MEAN CORPUSCULAR VOLUME 98 fL (82-100); MONOCYTES # (AUTO) 0.4 K/uL (0.1-1.30); MONOCYTES % (AUTO) 7.6 % (2.0-12.0); NEUTROPHILS # (AUTO) 3.7 K/uL (1.8-8.9); NEUTROPHILS % (AUTO) 65.2 % (43.0-81.0); PLATELET COUNT (AUTO) 376 K/uL (150-450); RED CELL DISTRIBUTION WIDTH 21.9 % (11.5-15.0); WHITE BLOOD COUNT (AUTO) 5.7 K/uL (4.3-11.0)
[2024-09-19 08:43] LABS: PROTHROMBIN TIME 10.6 SECS (9.2-11.1)
[2024-09-19] MEDS ORDERED: MAGNESIUM OXIDE 400 MG TABLET PO SCH (09:30)
[2024-09-19] MEDS ORDERED: ANESTHESIA TRAY IN PYXIS 1 EA TRAY MC ONE (11:16)
[2024-09-19] MEDS ORDERED: MIDAZOLAM HCL 2 MG/2ML VIAL ONE (11:23)
[2024-09-19] MEDS ORDERED: FENTANYL PF 100MCG/2ML AMPUL ONE (11:23)
[2024-09-19] MEDS ORDERED: LIDOCAINE 1% INJ 50 ML MDV IJ ONE (11:42)
[2024-09-19] MEDS ORDERED: LIDOCAINE 0.5% HCL 50 ML VIAL ONE (11:42)
[2024-09-19] MEDS: ACETAMINOPHEN 325 MG TABLET PO PRN (15:55)
[2024-09-19 16:00] VITALS: BP 98/70; TEMP 97.9; O2SAT 99
[2024-09-19] MEDS: Magnesium 1GM/D5W 100ML PREMIX 100 ML IV SCH (17:41)
[2024-09-20] VITALS: BP 95/61; TEMP 98.1; O2SAT 99
[2024-09-20 07:31] LABS: BASOPHILS % (AUTO) 0.7 % (0.0-2.0); EOSINOPHILS % (AUTO) 0.5 % (0.0-6.0); HEMATOCRIT 32 % (33-45); HEMOGLOBIN 10.2 g/dL (11.5-14.8); LYMPHOCYTES % (AUTO) 14.3 % (20.0-44.0); MEAN CORPUSCULAR HEMOGLOBIN 32 PG (26.0-33.0); MEAN CORPUSCULAR HGB CONC 32 g/dl (31.0-36.0); MEAN CORPUSCULAR VOLUME 98 fL (82-100); MONOCYTES # (AUTO) 0.3 K/uL (0.1-1.30); MONOCYTES % (AUTO) 4.8 % (2.0-12.0); NEUTROPHILS # (AUTO) 5.4 K/uL (1.8-8.9); NEUTROPHILS % (AUTO) 79.7 % (43.0-81.0); PLATELET COUNT (AUTO) 352 K/uL (150-450); RED BLOOD CELL COUNT(AUTO) 3.23 MIL/uL (4.0-5.2); RED CELL DISTRIBUTION WIDTH 21.5 % (11.5-15.0); WHITE BLOOD COUNT (AUTO) 6.7 K/uL (4.3-11.0)
[2024-09-20 07:43] LABS: CALCIUM, SERUM 8.3 mg/dL (8.5-10.1); CREATININE 0.4 mg/dL (0.6-1.3); MAGNESIUM 1.8 mg/dL (1.8-2.4); POTASSIUM 3.8 mmol/L (3.5-5.1)
[2024-09-20 08:00] VITALS: BP 98/71; TEMP 98.6; O2SAT 99
[2024-09-20] MEDS: NEUTRA PHOS 1 POWD.PACKET PO SCH (09:08)
[2024-09-20 16:00] VITALS: BP 110/71; TEMP 98.9; O2SAT 99
[2024-09-20 16:07] LABS: FREE KAPPA LT CHAINS SERUM 19.9 mg/L (3.3-19.4); FREE LAMBDA LT CHAIN SERUM 17.4 mg/L (5.7-26.3); KAPPA/LAMBDA RATIO SERUM 1.14 (0.26-1.65)
[2024-09-20 17:08] VITALS: BP 110/71
== END 2024-09-20 17:50 | disposition home health service (06) | DRG 754 ==
LOC: ER 09:55 → TELE IN 11:34 → TELE1 12:09 → MEDSG1 09-15 10:10
PROVIDERS: ADMIT Nurse Practitioner Acute Care; ATTEND Student in an Organized Health Care Education/Training Program
PROC: 0W9B3ZZ Drainage of Left Pleural Cavity, Percutaneous Approach (ICD-10-PCS; principal; 2024-09-18)
PROC: 0W9B30Z Drainage of Left Pleural Cavity with Drainage Device, Percutaneous Approach (ICD-10-PCS; 2024-09-19)
DX: C57.02 Malignant neoplasm of left fallopian tube (principal); J96.01 Acute respiratory failure with hypoxia; C79.51 Secondary malignant neoplasm of bone; J91.0 Malignant pleural effusion; D61.818 Other pancytopenia; J93.9 Pneumothorax, unspecified; J98.11 Atelectasis; E83.42 Hypomagnesemia; D50.9 Iron deficiency anemia, unspecified; D72.829 Elevated white blood cell count, unspecified; Z79.01 Long term (current) use of anticoagulants; Z79.84 Long term (current) use of oral hypoglycemic drugs; Z86.711 Personal history of pulmonary embolism; Z99.81 Dependence on supplemental oxygen; I10 Essential (primary) hypertension; E11.9 Type 2 diabetes mellitus without complications; Z79.60 Long term (current) use of unspecified immunomodulators and immunosuppressants; Z90.710 Acquired absence of both cervix and uterus; Z79.811 Long term (current) use of aromatase inhibitors; C56.3 Malignant neoplasm of bilateral ovaries
CPT/HCPCS: 36415; 71045-TC; 80048-TC; 80076-TC; 80202-TC; 82040-TC; 82962-TC; 83605-TC; 83735-TC; 83880; 84100-TC; 84484-TC; 85025-TC; 85378-TC; 85396; 85610-TC; 85730-TC; 86850-TC; 87040-TC; 87081-TC; 87102-TC; 88108-TC; 88305-TC; 89051-TC; 93307-TC; 93970-TC; A4223; G0378; J0692; J1642; J1650; J1815; J2250; J2405; J3010; J3370; J3371; J3475; J3490; J7030; J7050; J7060